=== PATIENT | female | born 1940 | race Two or more races ===

== ENCOUNTER 2022-01-01 11:20 | Outpatient (CLI) | payer OTHER | END 2022-01-01 11:30 | disposition home or self-care (01) | LOC: TOM 11:20 | PROVIDERS: ATTEND Otolaryngology | DX: J32.9 Chronic sinusitis, unspecified (principal) ==

== ENCOUNTER 2025-03-21 08:40 | Outpatient (CLI) | payer OTHER ==
[~2025-03-21 08:40] MED LIST: AMLODIPINE-OLM1 EAC1; DICLOFENAC35 MG
== END 2025-03-21 08:45 | disposition home or self-care (01) ==
LOC: MAMO-SONO 08:40
DX: Z12.39 Encounter for other screening for malignant neoplasm of breast (principal); Z12.31 Encounter for screening mammogram for malignant neoplasm of breast